=== PATIENT | male | born 2000 | race American Indian/Alaskan Native ===

== ENCOUNTER 2023-05-14 01:57 | Emergency (ER) | payer SELFPAY ==
[2023-05-14] MEDS: Diphtheria,Pertussis(Acell),Tetanus Vaccine 0.5 ML Syringe IM ONE (02:18)
== END 2023-05-14 05:09 | disposition home or self-care (01) ==
LOC: MW.ED 01:57
DX: S02.2XXA Fracture of nasal bones, initial encounter for closed fracture (principal); S00.212A Abrasion of left eyelid and periocular area, initial encounter; Z23 Encounter for immunization; Y04.0XXA Assault by unarmed brawl or fight, initial encounter
CPT/HCPCS: 70450; 70450-26; 72125; 72125-26; 73030-26-LT; 73030-LT; 90471; 90715; 99283; 99284-25

== ENCOUNTER 2023-08-13 21:32 | Emergency (ER) | payer OTHER | END 2023-08-13 22:50 | disposition home or self-care (01) | LOC: MW.ED 21:32 | DX: S52.502A Unspecified fracture of the lower end of left radius, initial encounter for closed fracture (principal); S52.612A Displaced fracture of left ulna styloid process, initial encounter for closed fracture; Z75.8 Other problems related to medical facilities and other health care; W13.9XXA Fall from, out of or through building, not otherwise specified, initial encounter | CPT/HCPCS: 29125; 73080-26-LT; 73080-LT; 73110-26-LT; 73110-LT; 99283; 99283-25 ==

== ENCOUNTER 2023-09-13 10:11 | Emergency (ER) | payer SELFPAY ==
[2023-09-13] MEDS: Acetaminophen 500 MG Tab PO ONE (10:36)
[2023-09-13] MEDS: Bacitracin Oint 1 GM U/D Packet TOP ONE (10:36)
== END 2023-09-13 10:50 | disposition home or self-care (01) ==
LOC: MW.ED 10:11
DX: S01.81XA Laceration without foreign body of other part of head, initial encounter (principal); F17.210 Nicotine dependence, cigarettes, uncomplicated; Z75.8 Other problems related to medical facilities and other health care; Y04.8XXA Assault by other bodily force, initial encounter
CPT/HCPCS: 99284; A9270; 99283

== ENCOUNTER 2025-02-19 19:04 | Emergency (ER) | payer SELFPAY | END 2025-02-19 19:18 | disposition left against medical advice (07) | LOC: MW.ED 19:04 | DX: Z53.21 Procedure and treatment not carried out due to patient leaving prior to being seen by health care provider (principal) ==